=== PATIENT | male | born 2000 | race Caucasian/White ===

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

== ENCOUNTER 2020-04-10 13:05 | Outpatient (RCR) | payer OTHER | END 2020-07-09 | disposition home or self-care (01) | LOC: PT | DX: Z98.890 Other specified postprocedural states (principal) ==

== ENCOUNTER 2020-07-14 13:30 | Outpatient (RCR) | payer OTHER | END 2020-10-09 | disposition still patient (30) | LOC: PT | DX: Z98.890 Other specified postprocedural states (principal) ==

== ENCOUNTER → 2023-09-01 | Outpatient (CLI) | payer OTHER | LOC: RAD 09:38 | DX: L95.8 Other vasculitis limited to the skin (principal); R79.89 Other specified abnormal findings of blood chemistry ==